=== PATIENT | female | born 2005 | race Two or more races ===

== ENCOUNTER 2024-12-11 21:31 | Emergency (ER) | payer OTHER | END 2024-12-11 23:37 | disposition left against medical advice (07) | LOC: ER 21:41 | DX: R07.9 Chest pain, unspecified (principal); R06.02 Shortness of breath; Z53.21 Procedure and treatment not carried out due to patient leaving prior to being seen by health care provider ==

== ENCOUNTER 2025-01-27 18:40 | Emergency (ER) | payer OTHER ==
[~2025-01-27] VITALS: Ht 167.6 cm; Wt 57.6 kg
[2025-01-27 19:08] VITALS: BP 101/70; TEMP 98.1; O2SAT 100
== END 2025-01-27 19:35 | disposition home or self-care (01) ==
LOC: ER 18:44
DX: J02.9 Acute pharyngitis, unspecified (principal); R05.9 Cough, unspecified; R50.9 Fever, unspecified